=== PATIENT | male | born 1985 | race Hispanic/Latino ===

== ENCOUNTER 2020-03-03 20:07 | Inpatient (IN) | payer SELFPAY ==
[~2020-03-03] VITALS: Ht 180.3 cm; Wt 77.7 kg
[2020-03-03] MEDS ORDERED: NALOXONE HCL 0.4 MG/1 ML ML ONE (20:15)
[2020-03-03 20:35] LABS: BASOPHILS % (AUTO) 0.3 % (0.0-5.0); EOSINOPHILS % (AUTO) 3.3 % (0.0-8.0); HEMATOCRIT 42.1 % (42-54); LYMPHOCYTES % (AUTO) 27.1 % (21.0-51.0); MEAN CORPUSCULAR HEMOGLOBIN 29.2 pg (27.0-33.0); MEAN CORPUSCULAR HGB CONC 32.8 g/dL (32.0-36.0); MEAN CORPUSCULAR VOLUME 89.2 fL (79-99); MONOCYTES % (AUTO) 10.1 % (3.0-13.0); NEUTROPHILS % (AUTO) 58.9 % (40.0-77.0); PLATELET COUNT (AUTO) 282 K/uL (130-400); RED BLOOD CELL COUNT(AUTO) 4.72 MIL/uL (4.50-6.20); RED CELL DISTRIBUTION WIDTH 14.4 % (11.0-15.5); WHITE BLOOD COUNT (AUTO) 5.8 K/uL (4.8-10.8)
[2020-03-03 20:46] LABS: INR 0.94 (0.85-1.15); PARTIAL THROMBOPLASTIN TIME 32.7 SEC (26.3-35.5); PROTHROMBIN TIME 10.2 SEC (9.6-11.6)
[2020-03-03 20:47] LABS: CARBON DIOXIDE 30 mmol/L (21-32); CHLORIDE 102 mmol/L (101-111); GLOMERULAR FILTR. RATE CALC 90 mL/min (>60); GLUCOSE,RANDOM 96 mg/dL (70-105); POTASSIUM 3.7 mmol/L (3.5-5.1); SODIUM SERUM 140 mmol/L (136-145); UREA NITROGEN, BLOOD 15 mg/dL (7-18)
[2020-03-03 20:51] LABS: ALANINE AMINOTRANSFERASE 14 U/L (12-78); ALBUMIN 4.1 g/dL (3.5-5.0); ALCOHOL, BLOOD < 3 mg/dL (0-10); ASPARTATE AMINOTRANSFERASE 12 U/L (10-37); BILIRUBIN,TOTAL 0.5 mg/dL (0.2-1.0); CREATINE KINASE, TOTAL 107 U/L (21-232); LIPASE 91 U/L (114-286); TOTAL PROTEIN, SERUM 7.8 g/dL (6.0-8.3)
[2020-03-03 22:49] LABS: APPEARANCE,URINE Cloudy (CLEAR); BILIRUBIN,URINE Negative (NEGATIVE); COLOR,URINE Dark Yellow (YELLOW); GLUCOSE, URINE (UA) Negative (NEGATIVE); KETONES,URINE Negative (NEGATIVE); LEUKOCYTE ESTERASE ,URINE Trace (NEGATIVE); NITRATE,URINE Negative (NEGATIVE); OCCULT BLOOD,URINE Large (NEGATIVE); PROTEIN,URINE POS 1+ mg/dL (NEGATIVE)
[2020-03-03 22:57] LABS: AMORPHOUS SEDIMENT,UR Many /LPF (None Seen); BACTERIA,URINE Few /HPF (None Seen); MUCUS,URINE Moderate LPF (None Seen); SQUAMOUS EPITHELIAL CELL,UR Few /HPF (0-2); WBC,URINE 0-1 /HPF (0-1)
[2020-03-03 22:59] LABS: AMPHET/METH SCREEN,URINE POSITIVE (NEGATIVE); BARBITURATE SCREEN, URINE NEGATIVE (NEGATIVE); BENZODIAZEPINES SCREEN,URINE POSITIVE (NEGATIVE); CANNABINOID SCREEN,URINE NEGATIVE (NEGATIVE); COCAINE SCREEN,URINE POSITIVE (NEGATIVE); OPIATE SCREEN,URINE NEGATIVE (NEGATIVE); PHENCYCLIDINE SCREEN,URINE NEGATIVE (NEGATIVE)
[2020-03-04] VITALS (8 sets, daily range): BP systolic 106–168; BP diastolic 57–94
[2020-03-04] MEDS: SODIUM CHLORIDE 0.9% 1000ML 1,000 ML IV SCH ×2 (00:15→13:35)
[2020-03-04] MEDS ORDERED: ACETAMINOPHEN 325 MG TAB PO PRN ×2 (00:15)
[2020-03-04] MEDS ORDERED: ONDANSETRON HCL 4 MG/2 ML VIAL IV PRN (00:15)
[2020-03-04 07:41] LABS: ALBUMIN 3.8 g/dL (3.5-5.0); BILIRUBIN,TOTAL 0.9 mg/dL (0.2-1.0); POTASSIUM 3.5 mmol/L (3.5-5.1); TOTAL PROTEIN, SERUM 7.5 g/dL (6.0-8.3)
[2020-03-04 07:42] LABS: BASOPHILS % (AUTO) 0.5 % (0.0-5.0); EOSINOPHILS % (AUTO) 5.8 % (0.0-8.0); HEMATOCRIT 42.7 % (42-54); LYMPHOCYTES % (AUTO) 40.7 % (21.0-51.0); MEAN CORPUSCULAR HEMOGLOBIN 28.9 pg (27.0-33.0); MEAN CORPUSCULAR HGB CONC 32.3 g/dL (32.0-36.0); MEAN CORPUSCULAR VOLUME 89.3 fL (79-99); MONOCYTES % (AUTO) 11.6 % (3.0-13.0); NEUTROPHILS % (AUTO) 40.9 % (40.0-77.0); PLATELET COUNT (AUTO) 247 K/uL (130-400); RED BLOOD CELL COUNT(AUTO) 4.78 MIL/uL (4.50-6.20); RED CELL DISTRIBUTION WIDTH 14.6 % (11.0-15.5)
[2020-03-04] MEDS: FAMOTIDINE/PF 20 MG/2 ML VIAL IV SCH ×2 (08:59→20:20)
[2020-03-04] MEDS: CEFTRIAXONE SODIUM 1 GM IVP SCH ×2 (08:59→20:20)
--- NOTE | 2020-03-04 11:57 | NUR ---
DCP CM met with pt unable to answer questions appropriately at this time, called mother Lori [phone] discussed dc plans. As per mother pt is independent prior to admission, lives with mother but sometimes disappears and stays with a friend. Denies any equipments/services. Mother verbalized pt used to go to [facility] for meds and MD, Per mother pt has hx:bipolar, schizoprenia, anxiety, ptsd, depression. Pt stopped going for a while now because pt said he didn't feel good after he takes his medicine and stopped taking his medications. Verified address on facesheet, per mother correct addr: [address] [place] [address]. Mother verbalized pt does not have insurance at this time. Informed mother of community resources. Per mother, she is able to assist with transportation and needs once pt stable and ready to go back home. Updated mother w/POC, pending Dr Mathew recommendations for the fx right 2nd, 3rd, 4th toe and possibly will need psych eval awaiting MD recommendations and medical clearance. DC plan to home vs psych once stable. CM to cont to follow. Addendum: 03/04/20 at 1204 by STEPHEN ADAMS LVN CM Amended: Links added.
[2020-03-04] MEDS ORDERED: ARIPIPRAZOLE 5 MG TABLET PO SCH (21:00)
--- NOTE | 2020-03-05 01:30 | NUR ---
ROUNDS PT ASLEEP, OBSERVED RISE AND FALL OF CHEST. UNLABORED RESPIRATIONS, ON RA. IV FLUIDS RUNNING ORDERED. BED ALARM ON. DOOR LEFT OPEN FOR CONTINUOUS MONITORING. TELEMETRY READING SINUS 67
[2020-03-05] MEDS: SODIUM CHLORIDE 0.9% 1000ML 1,000 ML IV SCH (02:55)
[2020-03-05 03:59] VITALS: BP 111/75
--- NOTE | 2020-03-05 05:27 | NUR ---
ROUNDS UNEVENTFUL NIGHT. NO CHANGE IN PATIENT CONDITION. PT RESTING THROUGHOUT THE NIGHT, OBSERVED RISE AND FALL OF CHEST, UNLABORED RESPIRATIONS. PT INFORMED THROUGHOUT THE NIGHT THAT A URINE SAMPLE IS PENDING- VERBALIZED IN AGREEMENT. STILL PENDING FOR PT TO VOID. TELEMETRY READING SINUS 62
[2020-03-05] MEDS: CEFTRIAXONE SODIUM 1 GM IVP SCH (06:13)
[2020-03-05 06:24] LABS: BASOPHILS % (AUTO) 0.5 % (0.0-5.0); EOSINOPHILS % (AUTO) 6.3 % (0.0-8.0); LYMPHOCYTES % (AUTO) 35.8 % (21.0-51.0); MEAN CORPUSCULAR HEMOGLOBIN 29.4 pg (27.0-33.0); MEAN CORPUSCULAR HGB CONC 32.8 g/dL (32.0-36.0); MEAN CORPUSCULAR VOLUME 89.8 fL (79-99); MONOCYTES % (AUTO) 7.5 % (3.0-13.0); NEUTROPHILS % (AUTO) 49.7 % (40.0-77.0); PLATELET COUNT (AUTO) 261 K/uL (130-400); RED BLOOD CELL COUNT(AUTO) 4.79 MIL/uL (4.50-6.20); RED CELL DISTRIBUTION WIDTH 14.2 % (11.0-15.5); WHITE BLOOD COUNT (AUTO) 4.1 K/uL (4.8-10.8)
[2020-03-05 06:37] LABS: CARBON DIOXIDE 30 mmol/L (21-32); CHLORIDE 102 mmol/L (101-111); GLOMERULAR FILTR. RATE CALC 90 mL/min (>60); GLUCOSE,RANDOM 92 mg/dL (70-105); POTASSIUM 3.9 mmol/L (3.5-5.1); SODIUM SERUM 138 mmol/L (136-145); UREA NITROGEN, BLOOD 13 mg/dL (7-18)
[2020-03-05 08:00] VITALS: BP 121/76
[2020-03-05] MEDS: FAMOTIDINE/PF 20 MG/2 ML VIAL IV SCH (08:28)
[2020-03-05] MEDS ORDERED: ARIPIPRAZOLE 5 MG TABLET PO SCH (09:00)
[2020-03-05 12:00] VITALS: BP 114/77
--- NOTE | 2020-03-05 14:17 | NUR ---
PATIENT DISCHARGED PATIENT DISCHARGED, IV DISCONTINUED, CATHLON INTACT BLEEDING CONTROLLED, PATIENT TOLERATED WITHOUT INCIDENT. TELE REMOVED AND RETURNED. PATIENT STATED HE WAS READY TO GO AND WAS GOING TO RIP OUT HIS IV AND LEAVE. EXPEDITED DISCHARGE ORDERS, PATIENT JUST WANTING TO LEAVE WITHOUT PAPERWORK. ATTACHED COPY OF DISCHARGE ORDER TO DISCHARGE PAPERWORK FOR DETAILED DISCHARGE INFORMATION FOR PATIENT TO FOLLOW BECAUSE HE WAS IMPATIENT AND UNWILLING TO WAIT FOR COMPLETED DISCHARGE PAPERWORK. PROVIDED PRESCRIPTIONS TO PATIENT, HE STATED HE HAD NO MONEY TO PURCHASE MEDICATIONS. PATIENT WAS PROVIDED NEW SET OF CRUTCHES AND GIVEN INSTRUCTIONS ON PROPER USE TO INCLUDE PATIENT DEMONSTRATING PROPER USE PRIOR TO LEAVING.
== END 2020-03-05 14:20 | disposition home or self-care (01) | DRG 563 ==
LOC: EDH 20:07 → EDHIP 20:08 → 3CH 03-04 01:09
PROVIDERS: ADMIT Internal Medicine; ATTEND Internal Medicine
DX: S92.321A Displaced fracture of second metatarsal bone, right foot, initial encounter for closed fracture (principal); N39.0 Urinary tract infection, site not specified; F14.10 Cocaine abuse, uncomplicated; F15.10 Other stimulant abuse, uncomplicated; F31.9 Bipolar disorder, unspecified; F60.2 Antisocial personality disorder; S92.331A Displaced fracture of third metatarsal bone, right foot, initial encounter for closed fracture; W18.39XA Other fall on same level, initial encounter; Y93.89 Activity, other specified; Y92.89 Other specified places as the place of occurrence of the external cause; Y99.8 Other external cause status
CPT/HCPCS: 36415; 70450; 71045; 72125; 73630; 80048; 80053; 80305; 81001; 82550; 83690; 83735; 83880; 84145; 84484; 85025; 85610; 85730; 87088; 93005; 99291; G0378; G0480; J0696; J2310; J3490